=== PATIENT | male | born 1990 | race Caucasian/White ===

== ENCOUNTER 2016-08-31 03:46 | Emergency (ER) | payer SELFPAY ==
[~2016-08-31 03:46] MED LIST: AMOXICILLIN500 M1; NO MEDICATIONS
== END 2016-08-31 04:17 | disposition home or self-care (01) ==
LOC: SED 03:46
DX: S91.332A Puncture wound without foreign body, left foot, initial encounter (principal); L03.116 Cellulitis of left lower limb; Z23 Encounter for immunization; F17.210 Nicotine dependence, cigarettes, uncomplicated; W21.31XA Struck by shoe cleats, initial encounter; Y92.69 Other specified industrial and construction area as the place of occurrence of the external cause; Y99.0 Civilian activity done for income or pay
CPT/HCPCS: 90471; 90715; 99283